=== PATIENT | female | born 1955 | race Caucasian/White ===

== ENCOUNTER 2017-05-28 07:05 | Emergency (ER) | payer BC ==
[2017-05-28 07:23] VITALS: BP 120/50
--- NOTE | 2017-05-28 07:49 | UC ---
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 - Allergy/Home Medications Allergies/Adverse Reactions: Allergies Allergy/AdvReac Type Severity Reaction Status Date / Time IVP dye Allergy Severe Hives Uncoded 05/28/17 07:23 Home Medications: Home Medications Atorvastatin* [Lipitor*] 80 mg PO DAILY 05/28/17 [History Confirmed 05/28/17] Multiple Vitamins W/ Minerals [Multivitamin Adults] 1 tab PO DAILY 05/28/17 [ History Confirmed 05/28/17] Review of Systems Constitutional: Negative Skin: Rash Eyes: Negative ENT: Negative Respiratory: Negative Cardiovascular: Negative Gastrointestinal: Negative Genitourinary: Negative Motor: Negative Neurovascular: Negative Musculoskeletal: Negative Neurological: Negative Psychological: Negative All Other Systems Reviewed And Are Negative: Yes PMH/Surg Hx/FS Hx/Imm Hx Previously Healthy: Yes - Surgical History Surgical History: Yes Surgery Procedure, Year, and Place: APPENDIX. - Family History Known Family History: Positive: Hypertension - Social History Alcohol Use: None Substance Use Type: None Smoking Status (MU): Never Smoked Tobacco - Immunization History Most Recent Influenza Vaccination: 3 yrs ago Most Recent Tetanus Shot: <5yrs Most Recent Pneumonia Vaccination: none Physical Exam Triage Information Reviewed: Yes Appearance: Well-Appearing, No Pain Distress, Well-Nourished, Thin Vital Signs: Initial Vital Signs Temp 99.5 F 05/28/17 07:18 Pulse 59 05/28/17 07:18 Resp 14 05/28/17 07:18 BP 120/50 05/28/17 07:18 Pulse Ox 100 05/28/17 07:18 Vital Signs Reviewed: Yes Eyes: Positive: Conjunctiva Clear ENT: Positive: Pharynx normal. Negative: Nasal congestion, Nasal drainage, Trismus, Muffled/hoarse voice Dental: Negative: Abscess @ Neck: Positive: Supple, Nontender, No Lymphadenopathy Respiratory: Positive: Lungs clear, Normal breath sounds, No respiratory distress, No accessory muscle use Cardiovascular: Positive: RRR, No Murmur Neurological: Positive: Alert Psychological Exam: Normal Skin Exam: Other - see image Course/Dx - Diagnoses Provider Diagnoses: left axillary rash of uncertain cause. ? cellulitis vs EM vs other Discharge - Discharge Plan Condition: Stable Disposition: HOME Prescriptions: DOXYcycline CAP(*) [DOXYcycline 100MG CAP(*)] 100 mg PO BID #28 cap Patient Education Materials: Cellulitis (ED) Referrals: Alexia Sykes NP [Primary Care Provider] - If Needed (recheck in about a week if not improving ) Additional Instructions: This may be due to an infected insect bite the antibiotic is also effective for lyme disease recheck for fever/chill or concern of a boil (abscess) Images Front/Back of Body, Lg ([place]): 1 - 8x6 cm area of redness. no flutuance. no open skin/oozing or crusting
== END 2017-05-28 07:47 | disposition home or self-care (01) ==
LOC: UCEAST 07:05
DX: R21 Rash and other nonspecific skin eruption (principal)
CPT/HCPCS: 99212; G0463